=== PATIENT | female | born 1980 | race American Indian/Alaskan Native ===

== ENCOUNTER 2017-06-23 09:12 | Observation (INO) | payer OTHER ==
[2017-06-23] MEDS ORDERED: TYLENOL PO ONE (09:33)
[2017-06-23 10:49] LABS: Bilirubin,Urine NEG (Negative); Blood,Urine LG (Negative); Color,Urine Yellow (Yellow); Mucus,Urine FEW /HPF; Nitrite,Urine NEG (Negative); Protein,Urine <15 mg/dL mg/dL (Negative); Urobilinogen,Urine < 2.0 mg/dL (<2.0)
[2017-06-23] MEDS ORDERED: LACTATED RINGERS 500 ML IV ONE (11:17)
[2017-06-23 11:37] VITALS: BP 131/76
--- NOTE | 2017-06-23 12:08 | Event Note ---
Date: 06/23/17 Pt seen and evaluated. Cx examined and not noted to have dilation of the external os. Patient advised of possible delivery. I offered for pt to have inhouse observation vs going home on bedrest with f/u at scheduled apt with MFM. Pt desires to go home. Bleeding was noted on my exam but just on the glove. Again, I could not clearly feel the cs os or opening. Sono shows cervical shortening. Pt will be d/c home on bedrest.
--- NOTE | 2017-06-23 12:36 | Ultrasound Report ---
ULTRASOUND OB LIMITED History: Cervical length, placental location Technique: Transabdominal ultrasound with Doppler interrogation. Gestation: Single Position: Cephalic Placenta: Anterior. The placenta appears low lying consistent with a marginal previa. Placental Grade: 0 Heart Rate: 156 BPM Cervical length: 0.5 cm (Normal > 3 cm). Cervical funneling is noted. Impression: The placenta is anterior in location. A marginal placenta previa is suspected. The cervix measures 0.5 cm with evidence of cervical funneling.
--- NOTE | 2017-06-23 13:00 | Event Note ---
Date: 06/23/17 The preliminary reading was that of low lying placenta and not previa. The final reports now reads previa suspected. Pt has been examined but no entry into the cervix at time of the exam. Again while in triage bleeding precautions were given.
== END 2017-06-23 12:13 | disposition home or self-care (01) ==
LOC: TRG 09:12 → LD 11:21
PROVIDERS: ADMIT Obstetrics & Gynecology; ATTEND Obstetrics & Gynecology
DX: O26.872 Cervical shortening, second trimester (principal); Z3A.21 21 weeks gestation of pregnancy
CPT/HCPCS: 76815; 81001; G0378

== ENCOUNTER 2017-07-20 23:57 | Outpatient (CLI) | payer OTHER ==
[2017-07-21] MEDS ORDERED: LACTATED RINGERS 500 ML IV ONE (00:05)
[2017-07-21 00:12] VITALS: BP 129/90
--- NOTE | 2017-07-21 08:32 | Ultrasound Report ---
FINAL REPORT EXAM: OB US LIMITED FETUS(S) HISTORY: 25 Wk /bleeding TECHNIQUE: Transabdominal sonographic evaluation was performed of the female pelvis with and without color Doppler imaging. Limited Ob examination. PRIORS: None. FINDINGS: A single, viable intrauterine is noted in cephalic position. The placenta is anteriorly positioned and there is no abnormal fluid collection between the placenta and the uterine body. Measurements: Amniotic fluid index 17.1 centimeters (Within normal limits) heart rate 162 beats per minute. Cervical length 3.5 centimeters. IMPRESSION: Viable, single intrauterine with heart beat of 162 beats per minute. Cervical length and amniotic fluid volume within normal limits. Followup anatomy scan (typically performed between weeks 20-22) is recommended for further evaluation.
== END 2017-07-21 01:05 | disposition home or self-care (01) ==
LOC: TRG 23:57
PROVIDERS: ATTEND Obstetrics & Gynecology
DX: O46.92 Antepartum hemorrhage, unspecified, second trimester (principal); O09.522 Supervision of elderly multigravida, second trimester; Z3A.25 25 weeks gestation of pregnancy
CPT/HCPCS: 59025; 76815; J7120

== ENCOUNTER 2017-08-14 18:50 | Outpatient (CLI) | payer OTHER ==
[2017-08-14] MEDS ORDERED: LACTATED RINGERS 500 ML IV ONE (19:04)
[2017-08-14 19:40] VITALS: BP 107/77
[2017-08-14 20:05] LABS: Bacteria,Urine 1+ /HPF (Negative); Bilirubin,Urine NEG (Negative); Blood,Urine MOD (Negative); Color,Urine Yellow (Yellow); Mucus,Urine 1+ /HPF; Urobilinogen,Urine < 2.0 mg/dL (<2.0)
== END 2017-08-14 20:56 | disposition home or self-care (01) ==
LOC: TRG 18:50
PROVIDERS: ATTEND Obstetrics & Gynecology
DX: O09.523 Supervision of elderly multigravida, third trimester (principal); O47.03 False labor before 37 completed weeks of gestation, third trimester; Z3A.28 28 weeks gestation of pregnancy
CPT/HCPCS: 59025; 81001

== ENCOUNTER 2017-10-10 16:51 | Outpatient (CLI) | payer BC, OTHER ==
[2017-10-10 17:50] LABS: Hematocrit 30.2 % (30.3-42.9); Hemoglobin 9.7 gm/dl (10.1-14.3); Mean Corpuscular HGB Conc 32 % (30-34); Mean Corpuscular Volume 72 fl (79-97); Platelet Count 205 K/mm3 (140-440); Red Cell Distribution Width 18.1 % (13.2-15.2)
[2017-10-10 17:51] LABS: Mean Corpuscular Hemoglobin 23 pg (28-32)
[2017-10-10 18:02] LABS: Alanine Aminotransferase 10 units/L (7-56); Uric Acid 3.6 mg/dL (3.5-7.6)
[2017-10-10 18:38] LABS: Bacteria,Urine 1+ /HPF (Negative); Bilirubin,Urine NEG (Negative); Blood,Urine NEG (Negative); Color,Urine Amber (Yellow); Mucus,Urine 1+ /HPF
[2017-10-10 19:11] VITALS: BP 136/83
== END 2017-10-10 19:26 | disposition home or self-care (01) ==
LOC: TRG 16:51
PROVIDERS: ATTEND Obstetrics & Gynecology
DX: O47.1 False labor at or after 37 completed weeks of gestation (principal); Z3A.37 37 weeks gestation of pregnancy
CPT/HCPCS: 36415; 59025; 81001; 82565; 82962; 83615; 84450; 84460; 84550; 85027

== ENCOUNTER 2017-10-23 15:00 | Observation (INO) | payer BC, OTHER ==
[2017-10-23] MEDS ORDERED: ASPIRIN PO ONE (15:35)
[2017-10-23 15:58] LABS: Hemoglobin 9.7 gm/dl (10.1-14.3); Mean Corpuscular HGB Conc 32 % (30-34); Mean Corpuscular Volume 71 fl (79-97); Platelet Count 354 K/mm3 (140-440); Red Blood Count 4.21 M/mm3 (3.65-5.03); Red Cell Distribution Width 17.8 % (13.2-15.2)
[2017-10-23 16:09] LABS: BUN/Creatinine Ratio 18; Blood Urea Nitrogen 11 mg/dL (7-17); Calcium 8.8 mg/dL (8.4-10.2); Hemolysis Index 0
[2017-10-23 16:12] LABS: Mean Corpuscular Hemoglobin 23 pg (28-32)
[2017-10-23] MEDS ORDERED: MORPHINE IV ONE (16:53)
[2017-10-23] MEDS ORDERED: VANCOMYCIN/NS 1 GM/250 ML 1 GM/250 ML BAG IV SCH (17:00)
[2017-10-23] MEDS ORDERED: VANCOMYCIN PHARMACY TO DOSE IV SCH (17:00)
--- NOTE | 2017-10-23 17:03 | Emergency Department Report ---
ED Chest Pain HPI - General Chief Complaint: Chest Pain Stated Complaint: COMPLICATIONS FROM Time Seen by Provider: 10/23/17 16:33 Source: patient Mode of arrival: Ambulatory Limitations: No Limitations - History of Present Illness Initial Comments: 37-year-old female presents to the emergency department with complaint of some midsternal chest pain, radiation to the left arm, left thigh pain that has been going on since the patient was discharged from the hospital a few days ago. The patient had a done here at [facility] by Dr. Valentin on October 17, 1 week ago. Upon discharge she is having some elevated blood pressure and did not have any previous diagnosis of preeclampsia or hypertension and is not on any medications. She also had a history of gestational diabetes but that has since resolved. She denies any tobacco or illicit drug use. She did not take anything for her symptoms prior to presentation. She denies any abdominal pain, or any redness or discharge from the incision site. She has a primary care physician but cannot currently remember name. Severity scale (0 -10): 9 - Related Data Home Medications Medication Instructions Recorded Confirmed Last Taken Pnv No.133/Ferrous Fum/Folic [Gs 1 tab PO DAILY 10/23/17 10/23/17 Unknown Vitamins Tablet] Vit D3/Folic Acid/B2/B6/B12 1 tab PO DAILY 10/23/17 10/23/17 Unknown [Folgard Tablet] Allergies Allergy/AdvReac Type Severity Reaction Status Date / Time No Known Allergies Allergy Verified 06/23/17 09:19 Heart Score - HEART Score History: Slightly suspicious EKG: Normal Age: < 45 Risk factors: 1-2 risk factors Troponin: < normal limit HEART Score: 1 - Critical Actions Critical Actions: 0-3 pts:0.9-1.7%risk of adverse cardiac event.Candidate for discharge ED Review of Systems ROS: Stated complaint: COMPLICATIONS FROM Other details as noted in HPI Comment: All other systems reviewed and negative Constitutional: denies: chills, fever Eyes: denies: eye pain, eye discharge, vision change ENT: denies: ear pain, throat pain Respiratory: denies: cough, shortness of breath Cardiovascular: chest pain. denies: palpitations Gastrointestinal: denies: abdominal pain, nausea, diarrhea Genitourinary: denies: urgency, dysuria, discharge Musculoskeletal: arthralgia, myalgia Skin: denies: rash, lesions Neurological: denies: headache, weakness, paresthesias ED Past Medical Hx - Past Medical History Previous Medical History?: Yes Hx Hypertension: No Hx Congestive Heart Failure: No Hx Diabetes: Yes (GDM, 05/27/2017) Hx Deep Vein Thrombosis: No Hx Renal Disease: No Hx Sickle Cell Disease: No Hx Seizures: No Hx Asthma: No Hx COPD: No Hx HIV: No - Surgical History Past Surgical History?: Yes Additional Surgical History: sinus surgery. endoscopy to remove "intestinal cyst" - Social History Smoking Status: Never Smoker - Medications Home Medications: Home Medications Medication Instructions Recorded Confirmed Last Taken Type Pnv No.133/Ferrous Fum/Folic [Gs 1 tab PO DAILY 10/23/17 10/23/17 Unknown History Vitamins Tablet] Vit D3/Folic Acid/B2/B6/B12 1 tab PO DAILY 10/23/17 10/23/17 Unknown History [Folgard Tablet] ED Physical Exam - General Limitations: No Limitations - Other Other exam information: GENERAL: The patient is well-developed well-nourished. HENT: Normocephalic. Atraumatic. Patient has moist mucous membranes. EYES: Extraocular motions are intact. Pupils equal reactive to light bilaterally. NECK: Supple. Trachea is midline. CHEST/LUNGS: Clear to auscultation. There is no respiratory distress noted. HEART/CARDIOVASCULAR: Regular. There is no tachycardia. There is no murmur. ABDOMEN: Abdomen is soft, nontender. Patient has normal bowel sounds. There is no abdominal distention. SKIN: Skin is warm and dry. NEURO: The patient is awake, alert, and oriented. The patient is cooperative. The patient has no focal neurologic deficits. The patient has normal speech. MUSCULOSKELETAL: There is no tenderness or deformity. There is no limitation range of motion. There is no evidence of acute injury. ED Course Vital Signs 10/23/17 10/23/17 10/23/17 15:29 16:31 16:42 Temperature 98.5 F 98.8 F Pulse Rate 99 H 97 H 92 H Respiratory 16 20 Rate Blood Pressure 161/105 Blood Pressure 154/90 [Left] O2 Sat by Pulse 100 100 Oximetry 10/23/17 10/23/17 10/23/17 16:46 17:00 17:16 Temperature Pulse Rate 90 90 94 H Respiratory 24 23 23 Rate Blood Pressure 154/90 162/97 162/97 Blood Pressure [Left] O2 Sat by Pulse Oximetry 10/23/17 10/23/17 10/23/17 17:30 17:46 18:00 Temperature Pulse Rate 82 83 85 Respiratory 20 21 18 Rate Blood Pressure 162/97 162/97 152/98 Blood Pressure [Left] O2 Sat by Pulse Oximetry 10/23/17 18:16 Temperature Pulse Rate 85 Respiratory 19 Rate Blood Pressure 152/98 Blood Pressure [Left] O2 Sat by Pulse Oximetry - Reevaluation(s) Reevaluation #1: I accidentally ordered vancomycin on this patient when it was intended for another patient. When I found out this mistake, the antibiotic was stopped on this patient. She was reassessed and notified that she had been given about 10 minutes worth of this antibiotic that usually goes over an hour. She has no new complaints. There are no signs of any rash, drug reaction or side effect. We will continue her workup and will continue to monitor. 10/23/17 17:59 MADDISON score - Maddison Score Age > 65: (0) No Aspirin use within the Past 7 Days: (0) No 3 or more CAD Risk Factors: (0) No 2 or more Angina events in past 24 hrs: (0) No Known CAD with more than 50% Stenosis: (0) No Elevated Cardiac Markers: (0) No ST Deviation Greater than 0.5mm: (0) No MADDISON Score: 0 ED Medical Decision Making - Lab Data Result diagrams: 10/23/17 15:42 10/23/17 15:42 - EKG Data -: EKG Interpreted by Me EKG shows normal: sinus rhythm, axis, intervals, QRS complexes, ST-T waves Rate: normal - EKG Data When compared to previous EKG there are: previous EKG unavailable Interpretation: normal EKG - Radiology Data Radiology results: report reviewed, image reviewed interpreted by me: Chest x-ray does not show any acute process. PROCEDURE: CT ANGIO CHEST TECHNIQUE: Computerized tomographic angiography of the chest was performed during the IV injection of iodinated nonionic contrast including image processing. The image data was postprocessed using 2- dimensional multiplanar reformatted (MPR) and 3-dimensional (MIP and/or volume rendered) techniques. HISTORY: CP, elevate dimer, post op COMPARISON: No prior studies are available for comparison. FINDINGS: Pulmonary outflow tract, right and left main pulmonary arteries and their proximal branches: Clear, no filling defects seen to suggest pulmonary embolus. Pericardium: No evidence of pericardial effusion. Thoracic aorta: No evidence of aneurysmal dilatation or dissection. Coronary arteries: Are unremarkable. Mediastinum and hilar regions: Nonspecific subcentimeter lymph nodes are visualized. No pathologically enlarged lymph nodes or masses are identified. Soft tissue dense material seen in the anterior mediastinum conforming to the contours of the anterior mediastinum suggesting residual or rebound thymic tissue. Lung Stone: Clear Upper abdomen: Small calcified granulomas seen in the spleen. No acute abnormalities are seen in the upper abdomen. Other: No acute bony abnormalities are identified. IMPRESSION: No evidence of pulmonary embolus. Residual or rebound thymic tissue suspected in the anterior mediastinum. No acute abnormalities are identified. Transcribed By: CHELO Dictated By: KELLY PELAYO MD Electronically Authenticated By: KELLY PELAYO MD Signed Date/Time: 1936 - Medical Decision Making Patient comes in with some chest pain, left leg pain and some elevated blood pressure about 1 week status post . It appears that her gestational diabetes as improved or resolved. Blood pressure is elevated but not to an urgent or emergent level. Patient has had negative troponins 2. The rest of the blood work appears unremarkable except for a very elevated d-dimer level. CT angiography of the chest does not show any signs of pulmonary embolism, dissection or any other acute process. The patient will need a venous Doppler of the left lower extremity to rule out a DVT. I spoke with the [employer]ISING [facility]ECUT[facility] service and Dr. Piedra, who requested that the patient received 4 g of magnesium for possible preeclampsia and he plans to admit the patient at least overnight to observe the blood pressure and treat if necessary. All the labs, imaging and plan for admission were discussed with the patient who understands and agrees to the plan. - Differential Diagnosis preeclampsia, PA, PE, DVT, GERD Critical Care Time: No Critical care attestation.: If time is entered above; I have spent that time in minutes in the direct care of this critically ill patient, excluding procedure time. ED Disposition Clinical Impression: Left leg pain Hypertension Qualifiers: Hypertension type: essential hypertension Qualified Code(s): I10 - Essential ( primary) hypertension Chest pain Qualifiers: Chest pain type: unspecified Qualified Code(s): R07.9 - Chest pain, unspecified Disposition: DC-09 OP ADMIT IP TO THIS HOSP Is pt being admited?: Yes Condition: Stable Time of Disposition: 22:15
[2017-10-23 17:19] LABS: Anisocytosis 1+; Band Neutrophils # (Manual) 0.1 K/mm3; Basophils % (Manual) 0 % (0.0-1.8); Platelet Estimate Consistent w Auto; Total Cells Counted 100
[2017-10-23] MEDS ORDERED: VANCOMYCIN 2,000 MG in NACL 0.9% 500 ML 500 ML IV SCH (17:30)
[2017-10-23] MEDS ORDERED: VANCOMYCIN 2,000 MG in NACL 0.9% 500 ML 500 ML IV ONE (17:30)
--- NOTE | 2017-10-23 18:38 | XRay Report ---
FINAL REPORT PROCEDURE: XR CHEST 1V AP TECHNIQUE: Chest radiograph anteroposterior view. CPT 87933 HISTORY: Chest pain COMPARISON: No prior studies are available for comparison. FINDINGS: Heart: The heart is magnified due to projection appears to be upper normal size to mildly enlarged. Mediastinum/Vessels: Normal. Lungs/Pleural space: Normal. Bony thorax: No acute osseous abnormality. Life support devices: None. IMPRESSION: Heart size upper normal to mildly enlarged. No other abnormalities are seen per.
--- NOTE | 2017-10-23 19:41 | Cat Scan Report ---
FINAL REPORT PROCEDURE: CT ANGIO CHEST TECHNIQUE: Computerized tomographic angiography of the chest was performed during the IV injection of iodinated nonionic contrast including image processing. The image data was postprocessed using 2-dimensional multiplanar reformatted (MPR) and 3-dimensional (MIP and/or volume rendered) techniques. HISTORY: CP, elevate dimer, post op COMPARISON: No prior studies are available for comparison. FINDINGS: Pulmonary outflow tract, right and left main pulmonary arteries and their proximal branches: Clear, no filling defects seen to suggest pulmonary embolus. Pericardium: No evidence of pericardial effusion. Thoracic aorta: No evidence of aneurysmal dilatation or dissection. Coronary arteries: Are unremarkable. Mediastinum and hilar regions: Nonspecific subcentimeter lymph nodes are visualized. No pathologically enlarged lymph nodes or masses are identified. Soft tissue dense material seen in the anterior mediastinum conforming to the contours of the anterior mediastinum suggesting residual or rebound thymic tissue. Lung Stone: Clear Upper abdomen: Small calcified granulomas seen in the spleen. No acute abnormalities are seen in the upper abdomen. Other: No acute bony abnormalities are identified. IMPRESSION: No evidence of pulmonary embolus. Residual or rebound thymic tissue suspected in the anterior mediastinum. No acute abnormalities are identified.
[2017-10-23 20:41] LABS: Bacteria,Urine 1+ /HPF (Negative); Bilirubin,Urine NEG (Negative); Blood,Urine LG (Negative); Color,Urine Yellow (Yellow); Protein,Urine <15 mg/dL mg/dL (Negative); Urobilinogen,Urine < 2.0 mg/dL (<2.0)
[2017-10-23] MEDS ORDERED: MAGNESIUM SULFATE 2GM/50ML 2 GM/50 ML BAG IV ONE ×2 (21:02)
--- NOTE | 2017-10-23 21:41 | History and Physical Report ---
History of Present Illness Date of examination: 10/23/17 History of present illness: This is a 36-year-old black female status post section delivery on course was complicated by diabetes. Call office today with complaints of chest pain and advised to be evaluated emergency room. Workup in the emergency room did rule out pulmonary embolus and essentially cardiac disease but during evaluation patient had persistent elevated blood pressure at out patient is being admitted for possible preeclampsia. Past History Past Medical History: diabetes, other (polycystic ovarian syndrome) Past Surgical History: , Other (sinus) Medications and Allergies Allergies Allergy/AdvReac Type Severity Reaction Status Date / Time No Known Allergies Allergy Verified 06/23/17 09:19 Home Medications Medication Instructions Recorded Confirmed Last Taken Type Pnv No.133/Ferrous Fum/Folic [Gs 1 tab PO DAILY 10/23/17 10/23/17 Unknown History Vitamins Tablet] Vit D3/Folic Acid/B2/B6/B12 1 tab PO DAILY 10/23/17 10/23/17 Unknown History [Folgard Tablet] Active Meds: Active Medications Vancomycin HCl 1,500 mg/ (Sodium Chloride) 515 mls @ 333.333 mls/hr IV Q12H MICKEY Vancomycin HCl (Vancomycin Pharmacy To Dose) 1 each IV PKCONSULT MICKEY Review of Systems Breasts: normal Cardiovascular: chest pain (resolved) Gastrointestinal: abdominal pain (consistent with postoperative pain) Exam - Constitutional Vitals: Temp Pulse Resp BP Pulse Ox 98.8 F 85 19 152/98 100 10/23/17 16:42 10/23/17 18:16 10/23/17 18:16 10/23/17 18:16 10/23/17 16:42 General appearance: Present: no acute distress - Respiratory Respiratory effort: normal - Extremities Extremity abnormal: edema - Abdominal General gastrointestinal: Present: other Female genitourinary: Present: deferred - Rectal Rectal Exam: deferred - Integumentary Integumentary: Present: clear, warm, dry Results - Labs CBC & Chem 7: 10/24/17 06:38 10/23/17 15:42 Labs: Abnormal lab results 10/23/17 10/23/17 10/23/17 Range/Units 15:42 15:42 17:04 Hgb 9.7 L (10.1-14.3) gm/dl Hct 30.0 L (30.3-42.9) % MCV 71 L (79-97) fl MCH 23 L (28-32) pg RDW 17.8 H (13.2-15.2) % Eosinophils % (Manual) 6.0 H (0.0-4.3) % Eosinophils # (Manual) 0.5 H (0.0-0.4) K/mm3 D-Dimer 2666.24 H (0-234) ng/mlDDU Creatinine 0.6 L (0.7-1.2) mg/dL Assessment and Plan - Patient Problems (1) Pre-eclampsia, Current Visit: Yes Status: Acute Plan to address problem: Patient had PE & cardiac conditions ruled out with treat with MgSo4 24 hours also start any hypertensive medicines we will repeat labs to rule out any lab abnormality. (2) Diabetes Current Visit: Yes Status: Acute Qualifiers: Diabetes mellitus type: type 2 Diabetes mellitus complication status: without complication
[2017-10-23] MEDS ORDERED: TYLENOL PO PRN (22:28)
[2017-10-23] MEDS ORDERED: MAGNESIUM SULFATE 40GM/1000ML 40 GM/1,000 ML BAG IV SCH (22:28)
[2017-10-23] MEDS ORDERED: SODIUM CHLORIDE FLUSH SYRINGE 10 ML IV PRN (22:28)
[2017-10-23] MEDS ORDERED: SODIUM CHLORIDE FLUSH SYRINGE 10 ML IV SCH (22:28)
[2017-10-23] MEDS ORDERED: MILK OF MAGNESIA PO PRN (22:28)
[2017-10-23] MEDS ORDERED: NORCO 5/325 PO PRN (22:28)
[2017-10-23] MEDS: NORMODYNE PO SCH (22:42)
[2017-10-23] MEDS: NACL 0.9% 1000 ML 1,000 ML IV SCH (22:47)
[2017-10-24] MEDS ORDERED: VANCOMYCIN 1,500 MG in NACL 0.9% 500 ML 500 ML IV SCH (05:30)
[2017-10-24] MEDS: NACL 0.9% 1000 ML 1,000 ML IV SCH ×3 (06:21→17:57)
[2017-10-24 07:05] LABS: Hematocrit 27.9 % (30.3-42.9); Hemoglobin 8.7 gm/dl (10.1-14.3); Mean Corpuscular HGB Conc 31 % (30-34); Mean Corpuscular Volume 71 fl (79-97); Platelet Count 337 K/mm3 (140-440); Red Blood Count 3.92 M/mm3 (3.65-5.03)
[2017-10-24 07:12] LABS: Mean Corpuscular Hemoglobin 22 pg (28-32)
[2017-10-24 07:37] LABS: Alanine Aminotransferase 16 units/L (7-56)
--- NOTE | 2017-10-24 08:12 | Progress Note ---
Assessment and Plan patient resting with c/p numbness in pinky and ring finger on left hand. pt reports no pain legs. denies LAMB, visual changes or epigastric pain. b/p 140-150' s/80-105, LFTs NL. plan to continue mag sulfate @1gm/hr and labetalol 200mg po BID. Will continue to monitor, will consult Dr. Maria - Patient Problems (1) Chest pain Current Visit: Yes Status: Resolved Qualifiers: Chest pain type: unspecified Qualified Code(s): R07.9 - Chest pain, unspecified (2) Hypertension Current Visit: Yes Status: Acute Qualifiers: Hypertension type: essential hypertension Qualified Code(s): I10 - Essential (primary) hypertension (3) S/P primary low transverse Onset Date: 10/17/17 Current Visit: No Status: Acute Subjective - Subjective Date of service: 10/24/17 Principal diagnosis: readmit day #2; htn, c/s / Patient reports: appetite normal, voiding normally, pain well controlled, ambulating normally, no dizzy ambulation, no nauseated Objective - Vital Signs Latest vital signs: Vital Signs Temp Pulse Pulse Resp BP BP BP 10/24/17 06:05 91 H 150/91 10/24/17 02:30 98.3 F 99 H 20 146/91 10/24/17 00:03 98.1 F 90 20 152/94 10/24/17 00:00 98.1 F 90 20 152/94 10/23/17 22:42 82 159/105 10/23/17 22:36 98.3 F 98 H 20 159/105 10/23/17 22:35 82 18 10/23/17 21:46 83 16 157/98 10/23/17 21:30 82 21 157/98 10/23/17 21:16 80 20 157/98 10/23/17 21:00 94 H 13 157/98 10/23/17 20:46 87 21 156/96 10/23/17 20:30 86 14 156/96 10/23/17 20:24 18 156/96 10/23/17 20:00 98.2 F 89 17 156/96 10/23/17 19:46 90 18 152/98 10/23/17 19:30 79 15 152/98 10/23/17 19:16 91 H 18 152/98 10/23/17 18:16 85 19 152/98 10/23/17 18:00 85 18 152/98 10/23/17 17:46 83 21 162/97 10/23/17 17:30 82 20 162/97 10/23/17 17:16 94 H 23 162/97 10/23/17 17:00 90 23 162/97 10/23/17 16:46 90 24 154/90 10/23/17 16:42 98.8 F 92 H 20 154/90 10/23/17 16:31 97 H 10/23/17 15:29 98.5 F 99 H 16 161/105 Pulse Ox 10/24/17 06:05 10/24/17 02:30 96 10/24/17 00:03 98 10/24/17 00:00 98 10/23/17 22:42 10/23/17 22:36 98 10/23/17 22:35 10/23/17 21:46 10/23/17 21:30 10/23/17 21:16 10/23/17 21:00 10/23/17 20:46 10/23/17 20:30 10/23/17 20:24 10/23/17 20:00 10/23/17 19:46 10/23/17 19:30 10/23/17 19:16 10/23/17 18:16 10/23/17 18:00 10/23/17 17:46 10/23/17 17:30 10/23/17 17:16 10/23/17 17:00 10/23/17 16:46 10/23/17 16:42 100 10/23/17 16:31 10/23/17 15:29 100 Intake and Output 10/23/17 10/24/17 10/24/17 23:59 07:59 15:59 Intake Total 807.5 Output Total 175 1500 Balance -175 -692.5 Intake: IV 567.5 NaCl 0.9% 1000 ml 1,000 567.5 ml @ 75 mls/hr IV DIRECT MICKEY Rx#:[id number] Oral 240 Output: Urine 175 1500 Void 175 1500 Other: Total, Intake Amount 240 Total, Output Amount 175 900 Voiding Method Toilet Weight 94.8 kg - Exam Breasts: Present: normal Cardiovascular: Present: Regular rate Lungs: Present: Clear to auscultation, Normal air movement Abdomen: Present: normal appearance, soft Vulva: both: normal Uterus: Present: normal, firm, fundal height below umbilicus Extremities: Present: normal Deep Tendon Reflex Grade: Normal +2 Incision: Present: normal, dry, intact - Labs Labs: Abnormal lab results 10/23/17 10/23/17 10/23/17 Range/Units 15:42 15:42 17:04 Hgb 9.7 L (10.1-14.3) gm/dl Hct 30.0 L (30.3-42.9) % MCV 71 L (79-97) fl MCH 23 L (28-32) pg RDW 17.8 H (13.2-15.2) % Eosinophils % (Manual) 6.0 H (0.0-4.3) % Eosinophils # (Manual) 0.5 H (0.0-0.4) K/mm3 D-Dimer 2666.24 H (0-234) ng/mlDDU Creatinine 0.6 L (0.7-1.2) mg/dL 10/24/17 Range/Units 06:38 Hgb 8.7 L (10.1-14.3) gm/dl Hct 27.9 L (30.3-42.9) % MCV 71 L (79-97) fl MCH 22 L (28-32) pg RDW 18.0 H (13.2-15.2) % Eosinophils % (Manual) (0.0-4.3) % Eosinophils # (Manual) (0.0-0.4) K/mm3 D-Dimer (0-234) ng/mlDDU Creatinine (0.7-1.2) mg/dL
[2017-10-24 08:27] LABS: Acanthocytes 1+; Anisocytosis 1+; Basophils % (Manual) 0 % (0.0-1.8); Hypochromasia 1+; Poikilocytosis 2+; Total Cells Counted 100
[2017-10-24 08:28] LABS: Burr Cells Few; Ovalocytes Few; Platelet Estimate Cons; Tear Drop Cells Few
[2017-10-24] MEDS: COLACE PO SCH ×2 (10:29→22:32)
[2017-10-24] MEDS: NORMODYNE PO SCH ×2 (10:29→22:31)
[2017-10-24] MEDS: MOTRIN PO PRN (12:19)
--- NOTE | 2017-10-24 18:05 | Event Note ---
Date: 10/24/17 Agree with MW exam and note. Will con't magnesium. Labs don't appear to reflect pre E. Bps no longer in sever ranges. Will con't the labetlol 200bid also.
[2017-10-24 21:15] LABS: BUN/Creatinine Ratio 10; Blood Urea Nitrogen 8 mg/dL (7-17); Calcium 8.2 mg/dL (8.4-10.2); Hemolysis Index 0
[2017-10-25] MEDS: MOTRIN PO PRN ×2 (02:26→08:37)
[2017-10-25] MEDS: NORMODYNE PO SCH ×2 (08:36→10:00)
[2017-10-25] MEDS ORDERED: NORMODYNE PO NR (08:55)
[2017-10-25] MEDS ORDERED: PEPCID PO SCH (10:00)
--- NOTE | 2017-10-25 10:09 | Discharge Summary ---
Providers - Providers Date of Admission: 10/23/17 21:29 Date of discharge: 10/25/17 Attending physician: JANIS PINEDA Primary care physician: [employer] Hospitalization Condition: Good Procedures: Chest CT, EKG Hospital course: Patient is POD#8 LTCS for GDM with macrosomia. she present to ED on c/o chest pain and was noted to have elevated BP's. Her evaluation was negative for a cardiac event and PE. She was admitted and given MgSO4 for seizure prophylaxis for presumed preeclampsia. Her PIH labs were normal. She was started of Labetalol 200mg bid, that was increased to better control BP's. Now no chest pain, has intermittent parethesis (L) hand probably d/t physiologic fluid shifts associated with . No other complaints. Will allow home, BP's mostly 150's/90'since discontinuing MgSO4, will increase Labetalol to 300mg bid. Patient agrees with plan of care Disposition: DC-01 TO HOME OR SELFCARE - Discharge Diagnoses (1) hypertension Status: Acute Core Measure Documentation - Palliative Care Palliative Care/ Comfort Measures: Not Applicable - Core Measures Any of the following diagnoses?: none Exam - Constitutional Vitals: Temp Pulse Resp BP Pulse Ox 98.9 F 90 18 157/92 97 10/25/17 07:35 10/25/17 09:11 10/25/17 07:35 10/25/17 09:11 10/25/17 07:35 General appearance: Present: no acute distress - Respiratory Respiratory effort: normal - Extremities Extremities: no ischemia, No edema (nontender) - Abdominal Female genitourinary: Present: deferred - Integumentary Integumentary: Present: clear, warm, dry (Incision C/D/I, no s/s infection) - Psychiatric Psychiatric: appropriate mood/affect, intact judgment & insight Plan Activity: other (No sex no driving) Weight Bearing Status: Weight Bear as Tolerated Diet: low fat, low cholesterol, low salt, diabetic Wound: open to air, keep clean and dry Special Instructions: no heavy lifting (>25#) Additional Instructions: A written prescription for a breast pump and blood pressure machine was given as requested by her Follow up with: JANIS PINEDA MD [Staff Physician] - (As scheduled) Forms: [facility] Discharge Summary
[2017-10-25] MEDS: COLACE PO SCH (10:59)
[2017-10-25 16:48] VITALS: BP 157/97
== END 2017-10-25 17:00 | disposition home or self-care (01) ==
LOC: ED 15:00 → OB 21:29
PROVIDERS: ADMIT Obstetrics & Gynecology; ATTEND Obstetrics & Gynecology
DX: O14.95 Unspecified pre-eclampsia, complicating the puerperium (principal); E11.9 Type 2 diabetes mellitus without complications
CPT/HCPCS: 36415; 71045; 71275; 80048; 81001; 82962; 83735; 84450; 84460; 84484; 85007; 85025; 85379; 93005; 93010; 96365; 96366; 96367; 96375; 99285; G0378; J2270; J3370; J3475; J7030; J7040; Q9967

== ENCOUNTER 2017-11-25 01:43 | Emergency (ER) | payer BC, OTHER ==
[2017-11-25 03:18] VITALS: BP 144/103
[2017-11-25 04:06] LABS: Basophils # (Auto) 0.1 K/mm3 (0.0-0.1); Basophils % (Auto) 0.9 % (0.0-1.8); Eosinophils # (Auto) 0.2 K/mm3 (0.0-0.4); Eosinophils % (Auto) 2.8 % (0.0-4.3); Hematocrit 36.3 % (30.3-42.9); Hemoglobin 11.4 gm/dl (10.1-14.3); Lymphocytes # (Auto) 2.3 K/mm3 (1.2-5.4); Lymphocytes % (Auto) 30.3 % (13.4-35.0); Mean Corpuscular HGB Conc 32 % (30-34); Monocytes # (Auto) 0.4 K/mm3 (0.0-0.8); Monocytes % (Auto) 4.8 % (0.0-7.3); Platelet Count 318 K/mm3 (140-440); Red Blood Count 5.26 M/mm3 (3.65-5.03); Red Cell Distribution Width 18.4 % (13.2-15.2)
[2017-11-25 04:24] LABS: BUN/Creatinine Ratio 23; Blood Urea Nitrogen 18 mg/dL (7-17); Calcium 9.7 mg/dL (8.4-10.2); Hemolysis Index 0
[2017-11-25 04:38] LABS: Mean Corpuscular Hemoglobin 22 pg (28-32); Mean Corpuscular Volume 69 fl (79-97)
--- NOTE | 2017-11-25 05:03 | XRay Report ---
FINAL REPORT EXAM: XR CHEST ROUTINE 2V HISTORY: Shortness of breath TECHNIQUE: PA and lateral views of the chest were submitted and compared to the study of 10/23/2017. FINDINGS: The heart size is normal. There is mild interstitial prominence with slight thickening of the fissures. Mild congestive heart failure cannot be excluded. Pleural fluid is not seen. The skeletal structures do not show any acute changes. IMPRESSION: Interstitial prominence with slight thickening of the fissures. Mild congestive heart failure cannot entirely be excluded.
== END 2017-11-25 03:25 | disposition left against medical advice (07) ==
LOC: ED 01:43
DX: R11.10 Vomiting, unspecified (principal); R06.02 Shortness of breath; R07.9 Chest pain, unspecified; Z53.21 Procedure and treatment not carried out due to patient leaving prior to being seen by health care provider
CPT/HCPCS: 36415; 71046; 80048; 84484; 84703; 85025; 93005; 93010